=== PATIENT | male | born 1985 | race Two or more races ===

== ENCOUNTER 2024-05-12 21:26 | Emergency (ER) | payer MEDICAID, SELFPAY ==
[2024-05-12 21:26] VITALS: BMI 32.1
[2024-05-12 21:47] VITALS: BP 167/98; PULSE 58; RESP 19; TEMP 36.8; O2SAT 98
--- NOTE | 2024-05-12 22:09 | PD.EDMALE ---
ED Male Genitalurinary RME/HPI General Chief complaint: Abdominal Pain Stated complaint: LOWER ABD PAIN; URINARY PAIN Time Seen by Provider: 05/12/24 21:53 Arrival date/time: 05/12/24 21:26 38M with no significant PMH presents to ED with lower ab/pelvic pain, dysuria, and white penile discharge. Patient denies rash. Patient has had kidney stones before and states this feels different. Limitations: no limitations Related Data Previous Rx's ?Medication ?Instructions ?Recorded epinephrine 0.3 mg/0.3 mL 0.3 mg (0.3 mL) subcut .once PRN 07/14/18 injection, auto-injector (EpiPen hypersensitivity reaction #1 ea 2-Gabriele) prednisone 20 mg tablet 20 mg PO BID #6 tabs 07/14/18 hydrocodone 5 mg-acetaminophen 300 1 tab PO Q4H PRN pain #10 tabs 11/20/18 mg tablet (Vicodin) ibuprofen 600 mg tablet 600 mg PO QID PRN pain #30 tabs 11/20/18 tamsulosin 0.4 mg capsule (Flomax) 0.4 mg PO QDAY #20 caps 11/20/18 oxycodone-acetaminophen 5 mg-325 1 tab PO Q6H PRN pain #14 tabs 11/28/18 mg tablet (Percocet) tamsulosin 0.4 mg capsule (Flomax) 0.4 mg PO QDAY #14 caps 11/28/18 hydrocodone 5 mg-acetaminophen 325 1 tab PO Q6H pain #16 tabs 12/09/18 mg tablet (Adams) tamsulosin 0.4 mg capsule (Flomax) 0.4 mg PO QDAY #14 caps 12/09/18 naproxen 500 mg tablet (Naprosyn) 500 mg PO BID PRN pain #30 tabs 12/02/22 doxycycline hyclate 100 mg tablet 100 mg PO BID 7 days #14 tabs 05/12/24 Allergies Allergy/AdvReac Type Severity Reaction Status Date / Time bee venom protein (honey bee) Allergy Severe Swelling Verified 05/12/24 21:28 of Lip/Tongue/Throat Review of Systems Review of Systems Systems Reviewed: All systems reviewed, normal except as documented Constitutional Constitutional: Reports system reviewed and no additional complaints, except as documented, Denies fever(s) and Denies headache(s) ENT Ears, Nose, Mouth, and Throat: Denies disequilibrium and Denies headache(s) Cardiovascular Cardiovascular: Reports system reviewed and no additional complaints, except as documented, Denies chest pain and Denies dyspnea Respiratory Respiratory: Reports system reviewed and no additional complaints, except as documented, Denies cough and Denies dyspnea Gastrointestinal Gastrointestinal: Reports system reviewed and no additional complaints, except as documented, Denies abdominal pain, Denies nausea and Denies vomiting Genitourinary Genitourinary: Reports as per HPI, Reports dysuria and Reports penile discharge Neurologic Neurologic: Reports system reviewed and no additional complaints, except as documented, Denies confusion, Denies disequilibrium and Denies headache(s) Psychiatric Psychiatric: Denies confusion Past Medical History Past Medical History CARDIAC: Negative Congestive Heart Failure RESPIRATORY: Negative Chronic Obstructive Pulmonary Disease (COPD) GENITOURINARY: Positive Kidney Stones; Negative Renal Disease ENDOCRINE: Negative Diabetes Mellitus Type 1 or Diabetes Mellitus Type 2 Social History SMOKING STATUS: Never smoker SUBSTANCE USE: does not use ED Exam General Limitations: Present no limitations General appearance: Present alert and in no apparent distress Head Head exam: Present atraumatic Eye Eye exam: Present normal appearance, PERRL and EOMI ENT ENT exam: Present normal exam, normal oropharynx and mucous membranes moist Neck Neck exam: Present normal inspection, full ROM and trachea midline Chest Chest inspection: Present normal inspection and symmetric chest wall rise Respiratory Respiratory exam: Present normal lung sounds bilaterally Cardiovascular Cardiovascular exam: Present regular rate, normal rhythm and normal heart sounds Abdominal Exam Abdominal exam: Present soft and normal bowel sounds Extremities Exam Extremities exam: Present normal inspection and full ROM Back Exam Back exam: Present normal inspection and full ROM Neurological Exam Neurological exam: Present alert, oriented X3 and CN II-XII intact Psychiatric Psychiatric exam: Present normal affect and normal mood Skin Skin exam: Present warm, dry, intact and normal color Course Quality Measures none Orders Category Date Time Status Chlamydia/GC/TV - PCR Stat Lab 05/12/24 22:04 Received Urinalysis, C/S if Indicated Stat Lab 05/12/24 22:04 Completed Urine Culture Stat Lab 05/12/24 22:04 Received Doxycycline [Vibramycin] Med 05/12/24 21:54 Discontinued 100 mg PO X1 ONE cefTRIAXone [Rocephin] 1,000 mg Med 05/12/24 21:54 Discontinued Lidocaine 1% 20 ml [Xylocaine 1% 20 ML] 2.1 ml IM X1 Vital Signs Vital signs: Vital Signs Temperature 98.2 F 05/12/24 21:47 Pulse Rate 58 L 05/12/24 21:47 Respiratory Rate 19 05/12/24 21:47 Blood Pressure 167/98 H 05/12/24 21:47 Pulse Oximetry (%) 98 05/12/24 21:47 Oxygen Delivery Method Room Air 05/12/24 21:47 O2 at 98% on RA and WNLs Urogenital - Male MDM Narrative MDM Narrative:: 38M with no significant PMH presents to ED with lower ab/pelvic pain, dysuria, and white penile discharge. Patient denies rash. Patient has had kidney stones before and states this feels different. Physical exam with seal extrusion operator reveals no scrotal/genital swelling or discharge around head of penis. Patient is afebrile, calm, and alert. Patient wants empiric GC treatment. Culture pending at time of DC. UA shows mild elevation of WBCs. Patient data External records reviewed:: [facility] previous records Clinical information provided by:: patient Social determinants that could affect healthcare access:: none Patient has the following chronic illnesses:: none How is presenting disease/condition affected by chronic disease/condition?: no chronic disease Evaluation data The following diagnostics were reviewed and interpreted by me:: lab results Lab and/or radiology exams considered but not ordered:: ordered Interpretation Summary: above Medications / Prescriptions Medications or Prescriptions considered but not ordered:: ordered Medication administrations:: Medication Administration History Discontinued Medications Ceftriaxone Sodium 1,000 mg/ (Lidocaine HCl 2.1 ml) 0 mg IM X1 ONE Stop: 05/12/24 21:55 Last Admin: 05/12/24 22:35 Dose: 1,000 mg Documented By: LEXIE Doxycycline Hyclate (Doxycycline 100 Mg Tablet) 100 mg PO X1 ONE Stop: 05/12/24 21:55 Last Admin: 05/12/24 22:35 Dose: 100 mg Documented By: LEXIE above Consultations Consultation(s) initiated? (list below): No Diagnosis Urogenital Male Differential Diagnosis: urinary tract infection, priapism, urethritis, epididymitis, genital herpes simplex, prostatitis, acute retention of urine, inguinal hernia and other (male concern for STD ) Most likely diagnosis given after review of the tests above:: male concern for STD Admission Indicated Admission indicated?: not indicated Admission Request Was there a request for admission?: No Disposition Plan Disposition Plan: Discharge Discharge Attestation Discharge Attestation: The patient and all family members were given an opportunity to ask questions and understood the discharge instructions. Discharge instructions specifically effects, indications for sooner follow up or return to the emergency department, and the expected course of current diagnosis. Patient condition: Stable Discharge Plan Plan Patient Disposition: HOME (Self Care) Disposition Comment: Stable Prescriptions/Referrals Prescriptions/Med Rec: New doxycycline hyclate 100 mg tablet 100 mg PO BID 7 Days Qty: 14 0RF No Action prednisone 20 mg tablet 20 mg PO BID Qty: 6 0RF epinephrine [EpiPen 2-Gabriele] 0.3 mg/0.3 mL auto-injector 0.3 mg SC .once PRN (Reason: hypersensitivity reaction) Qty: 1 0RF tamsulosin [Flomax] 0.4 mg capsule 0.4 mg PO QDAY Qty: 14 0RF hydrocodone-acetaminophen [Adams] 5-325 mg tablet 1 tab PO Q6H MDD max 8 tabs Qty: 16 0RF ibuprofen 600 mg tablet 600 mg PO QID PRN (Reason: pain) Qty: 30 0RF hydrocodone-acetaminophen [Vicodin] 5-300 mg tablet 1 tab PO Q4H MDD 3 PRN (Reason: pain) Qty: 10 0RF tamsulosin [Flomax] 0.4 mg capsule 0.4 mg PO QDAY Qty: 20 0RF oxycodone-acetaminophen [Percocet] 5-325 mg tablet 1 tab PO Q6H MDD 4 PRN (Reason: pain) Qty: 14 0RF tamsulosin [Flomax] 0.4 mg capsule 0.4 mg PO QDAY Qty: 14 0RF naproxen [Naprosyn] 500 mg tablet 500 mg PO BID PRN (Reason: pain) Qty: 30 0RF Problem List Clinical Impression: Concern about STD in male without diagnosis Patient/Caregiver Discharge Instructions Additional Instructions: Please follow-up with PCP within 24-48 hours and return immediately if symptoms worsen. Print Language: Romansh Stand Alone Forms: Patient Portal Info Letter PA/FEATHER DUSTER WINDER Supervising Physician RADHA/JAYCE Supervising Physician: Dr. Navarro
[2024-05-12 22:10] LABS: Collection Type, Urine Clean Catch; Squamous Epithelial Cell,Urine 0 /hpf (0-5)
[2024-05-12 22:28] LABS: Bilirubin,Urine Negative (Negative); Blood,Urine Negative (Negative); Clarity,Urine Clear (Clear/Hazy); Color,Urine Lt-Yellow (Lt Yel-Yel); Glucose, Urine Negative (Negative); Ketones,Urine Negative (Negative); Leukocyte Esterase,Urine Positive (Negative); Nitrite,Urine Negative (Negative); PH,Urine 6.5 (5.0-7.0); Protein,Urine Negative (Neg - Trace); RBC,Urine 2 /hpf (0-3); Specific Gravity,Urine 1.023 (1.001-1.035); Urobilinogen,Urine Negative mg/dL (0.0-1.0); WBC,Urine 14 /hpf (0-5)
[2024-05-12] MEDS: cefTRIAXone 1,000 MG, LIDOCAINE 1% 20 ML 2.1 ML IM (22:35)
[2024-05-12] MEDS: DOXYCYCLINE 100 MG TABLET PO (22:35)
[2024-05-12 22:49] LABS: Culture Indicated,Urine Yes
[2024-05-13 09:22] LABS: Chlamydia trachomatis PCR Negative (Not Detect); Neisseria Gonorrhoeae DNA PCR Negative (Not Detect); Trichomonas Negative (Negative)
== END 2024-05-12 23:03 | disposition home or self-care (01) ==
LOC: SERX 05-13 00:13
PROVIDERS: Physician Assistant; Emergency Provider Emergency Medicine
DX: Z20.2 Contact with and (suspected) exposure to infections with a predominantly sexual mode of transmission (principal)
CPT/HCPCS: 81001; 87086; 87491; 87591; 87661; 96372; 99283; J0696; J3490; A9270